=== PATIENT | male | born 1960 ===

== ENCOUNTER 2020-09-23 20:36 | Emergency (ER) | payer OTHER ==
[~2020-09-23] VITALS: Ht 160 cm; Wt 55.9 kg
[2020-09-23] MEDS ORDERED: L.E.T SOLUTION TP ONE (21:15)
[2020-09-23] MEDS ORDERED: PROMETHAZINE 25 MG/ML, 1ML IM ONE (21:30)
[2020-09-23] MEDS ORDERED: SODIUM CHLORIDE 0.9% 1,000ML IVBOLUS ONE (21:30)
[2020-09-23] MEDS ORDERED: OMNIPAQUE 350 MG/ML, 100ML BOTTLE ONE (21:30)
[2020-09-23] MEDS ORDERED: PROMETHAZINE 25 MG/ML, 1ML ONE (21:51)
[2020-09-23 21:53] LABS: BASOPHILS % (AUTO) 0 % (0-1); EOSINOPHILS % (AUTO) 1 % (1-7); LYMPHOCYTES % (AUTO) 12 % (22-44); MEAN CORPUSCULAR HGB CONC 32.6 g/dL (33.2-36.2); MEAN PLATELET VOLUME 6.9 fL (7.4-10.4); MONOCYTES % (AUTO) 8 % (2-9); NEUTROPHILS % (AUTO) 79 % (42-75); PLATELET COUNT 286 x10^3/uL (130-400); RED BLOOD COUNT 4.44 x10^6/uL (4.38-5.82); RED CELL DISTRIBUTION WIDTH 25.3 % (9.4-14.8)
[2020-09-23 21:59] LABS: ALANINE AMINOTRANSFERASE 31 U/L (12-78); ALBUMIN 2.8 g/dL (3.4-5.0); ANION GAP 6 mmol/L (5-15); CALCIUM 8.7 mg/dL (8.5-10.1); CHLORIDE 96 mmol/L (98-107)
--- NOTE | 2020-09-23 22:00 | NUR ---
LATE ENTRY: PT HERE FOR CONSTIPATION X 2 DAYS. PT HAS COLORECTAL CA. PORT ACCESSED AND LABS DRAWN. PT MEDICATED FOR NAUSEA. VSS. FLUIDS RUNNING. DAUGHTER AT BEDSIDE
[2020-09-23 22:02] LABS: ALKALINE PHOSPHATASE 304 U/L (45-117); BILIRUBIN,TOTAL 0.5 mg/dL (0.2-1.0); CREATININE 0.59 mg/dL (0.7-1.3); TOTAL PROTEIN 7.1 g/dL (6.4-8.2)
[2020-09-23 22:18] LABS: MD MORPH REVIEW ONLY
[2020-09-23 22:19] LABS: ANISOCYTOSIS 2+; MICROCYTOSIS 1+; OVALOCYTES 1+
[2020-09-23 22:20] LABS: <PLATELET ESTIMATE> ADEQUATE
[2020-09-23 22:21] LABS: SMALL PLATELETS 1+
--- NOTE | 2020-09-23 22:24 | NUR ---
PT AT CT
[2020-09-24] MEDS ORDERED: SENN8.6T12 PO (00:07)
[2020-09-24] MEDS ORDERED: POLY17PO5 PO (00:07)
[2020-09-24] MEDS ORDERED: ONDA4TAB7 PO (00:07)
[2020-09-24] MEDS ORDERED: DOCUSATE 100 MG CAPSULE ONE (00:22)
[2020-09-24] MEDS ORDERED: PINK LADY ENEMA 490 ML BOTTLE PR ONE (00:30)
[2020-09-24] MEDS ORDERED: DOCUSATE 100 MG CAPSULE PO ONE (00:30)
[2020-09-24] MEDS ORDERED: POLYETHYLENE GLYCOL 17 GM PACKET PO SCH (00:33)
--- NOTE | 2020-09-24 01:16 | NUR ---
PT TOLERATED PINK ENEMA WELL. IMMEDIATELY ASKED TO USE COMMODE. PT SITTING UP ON BEDSIDE COMMODE W/ CALL LIGHT IN REACH AND FAMILY AT BEDSIDE. RESP EVEN AND UNLABORED, ANNELISE.
--- NOTE | 2020-09-24 01:45 | NUR ---
PT HAD BM. PT TO BE DISCHARGED. MD ASKED ABOUT LACTIC BLOOD DRAW. PER MD IT IS NOT NEEDED AT THIS TIME.
[2020-09-24 02:00] VITALS: BP 113/74
--- NOTE | 2020-09-24 02:02 | NUR ---
Caregiver given discharge instructions and they have confirmed that they understand the instructions. Patient ambulatory with steady gait. NAD, all questions answered appropriately, denies additional needs at this time. No personal belongings left in room after discharge.
== END 2020-09-24 02:04 | disposition home or self-care (01) ==
LOC: ED 23:25
DX: K59.00 Constipation, unspecified (principal); R11.0 Nausea; Z85.038 Personal history of other malignant neoplasm of large intestine
CPT/HCPCS: 36415; 74177; 80053; 83605; 83690; 85025; 96360; 96372; 99285; J2550; J7030; Q9967